=== PATIENT | male | born 1995 | race Hispanic/Latino ===

== ENCOUNTER 2022-03-23 12:09 | Emergency (ER) | payer OTHER ==
[~2022-03-23] VITALS: Ht 180.3 cm; Wt 113.4 kg
[2022-03-23] MEDS ORDERED: ACETAMINOPHEN500 MG PO (12:31)
[2022-03-23] MEDS ORDERED: IBUPROFEN200 MG PO (12:31)
== END 2022-03-23 13:22 | disposition home or self-care (01) ==
LOC: FSED 12:19
DX: S30.0XXA Contusion of lower back and pelvis, initial encounter (principal); Y04.0XXA Assault by unarmed brawl or fight, initial encounter; Y92.89 Other specified places as the place of occurrence of the external cause
CPT/HCPCS: 72100; 99283